=== PATIENT | male | born 1960 | race African-American/Black ===

== ENCOUNTER 2017-02-13 10:38 | Emergency (ER) | payer MEDICARE, OTHER ==
[~2017-02-13] VITALS: Ht 188 cm; Wt 77.0 kg
[~2017-02-13 10:38] MED LIST: FOLI1 PO; LISI-661 PO; OLAN5TAB2 PO; THIA100 PO; [UNRECOGNIZED DRUG - OTHER] PO
[2017-02-13 10:43] VITALS: BP 118/67
== END 2017-02-13 12:52 | disposition left against medical advice (07) ==
LOC: EMS 10:39
DX: R19.7 Diarrhea, unspecified (principal)
CPT/HCPCS: 99281